=== PATIENT | female | born 1945 | race Caucasian/White ===

== ENCOUNTER 2017-08-10 12:34 | Emergency (ER) | payer MEDICARE, BC ==
[2017-08-10] MEDS ORDERED: 0.9 % SODIUM CHLORIDE 1,000 ML BAG IV ONE ×2 (14:03→15:16)
[2017-08-10] MEDS ORDERED: ONDANSETRON HCL IV 4 MG/2 ML VIAL IV ONE (14:03)
--- NOTE | 2017-08-10 14:04 | Emergency Department Record ---
History of Present Illness - General Chief complaint: Nausea, Vomiting, Diarrhea Stated complaint: NAUSEA Time Seen by Provider: 08/10/17 13:58 Source: Patient Mode of Arrival: Ambulatory Limitations: No limitations - History of Present Illness Initial comments: 71 yo female presents with nausea. She recently had some issues with constipation. She did take some laxative that did help but now she is experiencing nausea. She reports she has a history of IBS. She has a history of alternating constipation and loose stools. No blood in the stools or vomit. She is a diabetic but she never checks her blood sugar at home. No fevers. No chills. No dysuria. MD complaint: Abdominal pain, Diarrhea, Nausea, Vomiting Onset/Timin -: Days(s) Description of Vomiting: Watery Description of Diarrhea: Other Associated Abdominal Pain: Yes Location: Diffuse Radiation: Back Severity: Mild Severity scale (1-10): 5 Quality: Aching Consistency: Constant Improves with: None Worsens with: None Associated Symptoms: Nausea/vomiting - Related Data Home Medications Medication Instructions Recorded Confirmed Last Taken Alprazolam [Alprazolam] 0.25 mg PO DAILY 08/10/17 08/10/17 Unknown Amitriptyline HCl [Elavil] 25 mg PO DAILY 08/10/17 08/10/17 Unknown Levothyroxine Sodium [Synthroid] 25 mcg PO DAILY 08/10/17 08/10/17 Unknown Metformin HCl 500 mg PO BID 08/10/17 08/10/17 Unknown Previous Rx's Medication Instructions Recorded Ondansetron [Zofran Odt] 4 mg PO Q8H #20 tab.rapdis 08/10/17 Allergies Allergy/AdvReac Type Severity Reaction Status Date / Time Penicillins Allergy HIVES Verified 08/10/17 13:54 Travel Screening - Travel/Exposure Within Last 30 Days Have you traveled within the last 30 days?: No Review of Systems Constitutional: Denies: Chills, Fever, Malaise, Weakness Eyes: Denies: Eye discharge, Eye pain, Photophobia ENT: Denies: Congestion, Throat pain Respiratory: Denies: Cough Cardiovascular: Denies: Chest pain, Palpitations, Syncope Endocrine: Denies: Fatigue Gastrointestinal: Reports: Abdominal pain, Diarrhea, Nausea, Vomiting. Denies: Constipation, Hematemesis, Hematochezia, Melena Genitourinary: Denies: Dyspareunia, Dysuria, Urgency Musculoskeletal: Denies: Arthralgia, Back pain, Neck pain Skin: Denies: Bruising, Change in color Neurological: Denies: Headache, Numbness, Vertigo, Weakness Psychiatric: Denies: Anxiety Hematological/Lymphatic: Denies: Blood Clots, Easy bleeding, Easy bruising, Swollen glands Past Medical History - SOCIAL HISTORY Smoking Status: Former smoker Alcohol Use: None Drug Use: None Drug Use Detail:: Marijuana - RESPIRATORY Hx Respiratory Disorders: Yes Hx COPD: Yes - CARDIOVASCULAR Hx Cardio Disorders: No - NEURO Hx Neuro Disorders: No - GI Hx GI Disorders: No - Hx Genitourinary Disorders: Yes Hx Kidney Stones: Yes - ENDOCRINE Hx Endocrine Disorders: Yes Hx Diabetes: Yes (type) Hx Thyroid Disease: Yes (hypo) - MUSCULOSKELETAL Hx Musculoskeletal Disorders: Yes Hx Arthritis: Yes (4) - PSYCH Hx Psych Problems: Yes Hx Anxiety: Yes Hx Depression: Yes - HEMATOLOGY/ONCOLOGY Hx Hematology/Oncology Disorders: No Family Medical History Any Significant Family History?: No Physical Exam - General General Appearance: Alert, Oriented x3, Cooperative, No acute distress Limitations: No limitations - Head Head exam: Atraumatic, Normocephalic, Normal inspection - Eye Eye exam: Normal appearance, Conjunctival injection - ENT ENT exam: Normal exam, Mucous membranes moist Ear exam: Normal external inspection Nasal Exam: Normal inspection Mouth exam: Normal external inspection - Neck Neck exam: Normal inspection - Respiratory Respiratory exam: Normal lung sounds bilaterally. negative: Respiratory distress - Cardiovascular Cardiovascular Exam: Regular rate, Normal rhythm, Normal heart sounds - GI/Abdominal GI/Abdominal exam: Soft, Normal bowel sounds. negative: Distended, Guarding, Rebound, Rigid, Tenderness - Rectal Rectal exam: Deferred - exam: Deferred - Extremities Extremities exam: Normal inspection, Full ROM, Normal capillary refill. negative: Tenderness - Back Back exam: Reports: Normal inspection, Full ROM. Denies: Muscle spasm, Rash noted, Tenderness - Neurological Neurological exam: Alert, Normal gait, Oriented X3 - Psychiatric Psychiatric exam: Normal affect, Normal mood - Skin Skin exam: Dry, Intact, Normal color, Warm. negative: Cyanosis, Diaphoretic Course Vital Signs 08/10/17 13:47 Temperature 98.7 F Pulse Rate 96 H Respiratory 20 Rate Blood Pressure 139/103 Pulse Ox 97 - Reevaluation(s) Reevaluation #1: 08/10/17 15:19 The labs were reviewed CBC is unchanged CMP demonstrates a glucose of 374, HCO3 20, AG 22, K is 3.8 She will be given supplemental K, additional IVF, and recheck labs pH and Ketones added She is actually feeling much better after 1 liter and Zofran. 08/10/17 15:35 The patient states she does not check her blood sugars ever. I discussed with her this will be important going forward. Reevaluation #2: pH and Acetone are negative. 08/10/17 16:42 After the second liter the patient feels greatly improved Will recheck glucose. 08/10/17 17:33 Medical Decision Making - Lab Data Result diagrams: 08/10/17 14:35 08/10/17 14:35 Disposition Disposition: Discharge Clinical Impression: Vomiting and diarrhea Disposition: Home, Self-Care Condition: (1) Good Instructions: Acute Nausea and Vomiting (ED) Additional Instructions: Stay hydrated Return if you have fever, pain, vomiting or any new concerns Zofran as needed for nausea Call your doctor for a new glucometer as soon as possible You will need to check your sugars on a daily basis Prescriptions: Ondansetron [Zofran Odt] 4 mg PO Q8H #20 tab.rapdis Forms: Patient Portal Access Time of Disposition: 18:17 Quality - Quality Measures Quality Measures: N/A - Blood Pressure Screening Does Patient Have Any of the Following: No Blood Pressure Classification: Hypertensive Reading Systolic Measurement: 139 Diastolic Measurement: 103 Screening for High Blood Pressure: < Pre-Hypertensive BP, F/U Documented > [ G8950] Pre-Hypertensive Follow-up Interventions: Referral to alternative/primary care provider.
[2017-08-10 14:49] LABS: BASO % 0.2 % (0-6); EOS % 0.5 % (0-6); GRAN % 71.6 % (47-80); HEMATOCRIT 44.7 % (35.0-47.0); HEMOGLOBIN 15.5 gm/dl (11.6-16.0); MEAN CELL VOLUME 84.2 fl (81-97); MEAN CORPUSCULAR HEMOGLOBIN 29.2 pg (27-33); MEAN CORPUSCULAR HGB CONC 34.7 g/dl (32-36); MEAN PLATELET VOLUME 10.8 fl (7.4-10.4); MONO % 11.7 % (0-9); PLATELET COUNT 267 K/uL (130-400); RED BLOOD COUNT 5.31 M/uL (3.80-5.40); RED CELL DISTRIBUTION WIDTH 13.3 % (11.5-14.5); WHITE BLOOD COUNT W/O DIFF 10.8 K/uL (4.2-12.2)
[2017-08-10 15:10] LABS: ALB/GLOB RATIO 1.4 (1.1-1.8); ALBUMIN 4.2 g/dL (4.0-5.0); ALKALINE PHOSPHATASE 89 U/L (35-104); ALT/SGPT 45 U/L (<33); AST/SGOT 34 U/L (10.0-35.0); BLOOD UREA NITROGEN 36.6 mg/dL (17.4-49.2); CREATININE 0.7 mg/dL (0.5-0.9); EST GLOMERULAR FILTRATION RATE > 60 mL/min; GLUCOSE,RANDOM 374 mg/dL (74-109); LIPASE 19 U/L (13-60); TOTAL PROTEIN 7.3 g/dL (6.6-8.7)
[2017-08-10] MEDS ORDERED: POTASSIUM CHLORIDE 20 MEQ TABLET PO ONE (15:17)
[2017-08-10] MEDS ORDERED: HUMULIN R 100 UNIT/ML VIAL SQ ONE (15:18)
[2017-08-10] MEDS ORDERED: HUMULIN R 100 UNIT/ML VIAL SC ONE (15:36)
[2017-08-10 16:09] LABS: ACETONE,SERUM NEGATIVE (NEGATIVE)
[2017-08-10 18:03] LABS: URINE APPEARANCE CLEAR; URINE BILIRUBIN SMALL (NEGATIVE); URINE BLOOD NEGATIVE (NEGATIVE); URINE COLOR YELLOW; URINE LEUKOCYTE ESTERASE NEGATIVE (NEGATIVE); URINE NITRITE NEGATIVE (NEGATIVE); URINE PROTEIN NEGATIVE (NEGATIVE); URINE UROBILINOGEN 0.2 E.U./dL (0.20 - 1.00)
[2017-08-10 18:04] LABS: URINE GLUCOSE (UA) >=1000 mg/dL (NEGATIVE); URINE KETONE 80 mg/dL (NEGATIVE)
== END 2017-08-10 18:30 | disposition home or self-care (01) ==
LOC: ER 12:34
DX: R11.2 Nausea with vomiting, unspecified (principal); R19.7 Diarrhea, unspecified
CPT/HCPCS: 99284 ×2; 96374; 96372; 96361; 82800; 83690; 85025; 80053; 36416; 82009; 82948; 81003; J2405; J1815; J7030

== ENCOUNTER 2017-08-15 13:56 | Emergency (ER) | payer BC, MEDICARE ==
[2017-08-15] MEDS ORDERED: IBUPROFEN 600 MG TABLET PO ONE (14:14)
--- NOTE | 2017-08-15 14:20 | Emergency Department Record ---
History of Present Illness - General Chief complaint: Extremity Problem Stated complaint: LT HAND/WRIST PAIN/SWELLING Time Seen by Provider: 08/15/17 14:10 Source: Patient Mode of Arrival: Ambulatory Limitations: No limitations - History of Present Illness Initial comments: 71 yo presents with two days of left wrist pain. She does not recall any injury. She woke up with the pain. No fevers. She noted some swelling. No abnormal warmth or redness. She does have a history of arthritis. No weakness , numbness or tingling. No abnormal coolness. PCP Sekoni. HERNANDEZ Complaint: Extremity pain, Joint pain Onset/Timin -: Days(s) Location: Left, Hand History of Same: No Severity scale (1-10): 8 Quality: Aching Consistency: Constant Improves with: Rest Associated Symptoms: Denies other symptoms, Arthralgias - Related Data Previous Rx's Medication Instructions Recorded Ondansetron [Zofran Odt] 4 mg PO Q8H #20 tab.rapdis 08/10/17 Allergies Allergy/AdvReac Type Severity Reaction Status Date / Time Penicillins Allergy HIVES Verified 08/15/17 14:15 Travel Screening - Travel/Exposure Within Last 30 Days Have you traveled within the last 30 days?: No - Travel/Exposure Within Last Year Have you traveled outside the [place] in the last year?: No - Additonal Travel Details Have you been exposed to anyone with a communicable illness?: No - Travel Symptoms Symptom Screening: None Review of Systems Constitutional: Denies: Chills, Fever, Malaise, Weakness Eyes: Denies: Eye discharge ENT: Denies: Congestion, Throat pain Respiratory: Denies: Cough, Dyspnea, Hemoptysis, Stridor, Wheezes Cardiovascular: Denies: Chest pain, Palpitations, Syncope Endocrine: Denies: Fatigue, Polydipsia, Polyuria Gastrointestinal: Reports: As per HPI (Recently resolved. Eating and drinking well now.), Diarrhea, Nausea, Vomiting Genitourinary: Denies: Dysuria, Urgency Musculoskeletal: Reports: As per HPI, Arthralgia. Denies: Back pain, Myalgia, Neck pain Skin: Denies: Bruising, Change in color Neurological: Denies: Headache, Numbness, Weakness Psychiatric: Denies: Anxiety Hematological/Lymphatic: Denies: Blood Clots, Easy bleeding, Easy bruising, Swollen glands Past Medical History - SOCIAL HISTORY Smoking Status: Former smoker Alcohol Use: None Drug Use: None - RESPIRATORY Hx Respiratory Disorders: Yes Hx COPD: Yes - CARDIOVASCULAR Hx Cardio Disorders: No - NEURO Hx Neuro Disorders: No - GI Hx GI Disorders: No - Hx Genitourinary Disorders: Yes Hx Kidney Stones: Yes - ENDOCRINE Hx Endocrine Disorders: Yes Hx Diabetes: Yes (type) Hx Thyroid Disease: Yes (hypo) - MUSCULOSKELETAL Hx Musculoskeletal Disorders: Yes Hx Arthritis: Yes (4) - PSYCH Hx Psych Problems: Yes Hx Anxiety: Yes Hx Depression: Yes - HEMATOLOGY/ONCOLOGY Hx Hematology/Oncology Disorders: No Family Medical History Any Significant Family History?: Yes Hx Cancer: Father, Mother, Grandparents Hx Diabetes: Father, Mother, Grandparents Hx Heart Disease: Father, Mother, Grandparents Hx Stroke: Grandparents Physical Exam - General General Appearance: Alert, Oriented x3, Cooperative, No acute distress Limitations: No limitations - Head Head exam: Atraumatic, Normal inspection - Eye Eye exam: Normal appearance, PERRL. negative: Conjunctival injection, Periorbital swelling - ENT ENT exam: Normal exam, Mucous membranes moist Ear exam: Normal external inspection Nasal Exam: Normal inspection Mouth exam: Normal external inspection - Neck Neck exam: Normal inspection - Respiratory Respiratory exam: Normal lung sounds bilaterally. negative: Respiratory distress - Cardiovascular Cardiovascular Exam: Normal rhythm, Tachycardia Peripheral Pulses: 2+: Radial (L) - Rectal Rectal exam: Deferred - exam: Deferred - Extremities Extremities exam: Normal inspection, Joint swelling (mild), Normal capillary refill, Tenderness. negative: Full ROM Image of Hand: 1 - mild swelling, no abnormal warmth or erythema, tender mid wrist, tender with ROM - Back Back exam: Denies: CVA tenderness (R), CVA tenderness (L) - Neurological Neurological exam: Alert, Normal gait, Oriented X3, Reflexes normal - Psychiatric Psychiatric exam: Normal affect, Normal mood. negative: Agitated, Anxious - Skin Skin exam: Dry, Intact, Normal color, Warm. negative: Cyanosis, Diaphoretic, Erythema, Mottled Course Vital Signs 08/15/17 14:11 Temperature 97.7 F Pulse Rate 119 H Respiratory 20 Rate Blood Pressure 121/96 Pulse Ox 97 - Reevaluation(s) Reevaluation #1: XR read as severe degenerative changes of the wrist and can not rule out distal radius avulsion fx She will be splinted and follow up with PCP 08/15/17 14:53 Disposition Disposition: Discharge Clinical Impression: Arthritis of wrist, left Disposition: Home, Self-Care Condition: (1) Good Instructions: Osteoarthritis (ED) Additional Instructions: Use the splint for support and comfort Ice the wrist 3-4 times daily to minimize swelling Follow up with your family doctor You are being referred to the orthopedic specialty clinic as well Referrals: ALIDA SUAREZ [DOCTOR OF OSTEOPATH] - [facility] Special[facility] [Provider Group] Forms: Patient Portal Access Time of Disposition: 15:02 Quality - Quality Measures Quality Measures: N/A - Blood Pressure Screening Does Patient Have Any of the Following: No Blood Pressure Classification: Hypertensive Reading Systolic Measurement: 121 Diastolic Measurement: 96 Screening for High Blood Pressure: < Pre-Hypertensive BP, F/U Documented > [ G8950] Pre-Hypertensive Follow-up Interventions: Referral to alternative/primary care provider.
--- NOTE | 2017-08-16 09:12 | RADIOLOGY REPORT ---
EXAM: LEFT WRIST HISTORY: INJURY. TECHNIQUE: Four views of the left wrist were performed. FINDINGS: There is severe degenerative change of the first carpal metacarpal joint space. There is calcification of the TFCC. There is an equivocal avulsion fracture deformity of the lateral aspect of the distal radius. IMPRESSION: 1. EQUIVOCAL FRACTURE DEFORMITY OF THE DISTAL LEFT RADIUS ALONG ITS LATERAL ASPECT. 2. SEVERE DEGENERATIVE CHANGE OF THE FIRST CARPAL METACARPAL JOINT SPACE. 3. CALCIFICATION OF THE TFCC. JOB NUMBER: [id number] [facility]
== END 2017-08-15 15:24 | disposition home or self-care (01) ==
LOC: ER 13:56
DX: M19.032 Primary osteoarthritis, left wrist (principal)
CPT/HCPCS: 99283

== ENCOUNTER 2017-12-04 09:37 | Day surgery (SDC) | payer BC ==
[2017-12-04] MEDS ORDERED: MIDAZOLAM HCL 2MG/2ML VIAL IV ONE (09:38)
[2017-12-04] MEDS ORDERED: PROPOFOL 10 MG/ML VIAL IV ONE (09:38)
[2017-12-04] MEDS ORDERED: LIDOCAINE 2% MDV (20MG/ML) 20ML VIAL IV ONE (09:38)
--- NOTE | 2017-12-05 12:40 | Operative Note ---
Dictated by Dr. Garfield Oneill for Dr. Corrigan DATE OF SURGERY: 12/04/2017 PREOPERATIVE DIAGNOSIS: History of colon polyps. POSTOPERATIVE DIAGNOSES: 1. One ascending colon polyp, status post cold snare polypectomy. 2. Three transverse colon polyps, cold snare polypectomy. 3. Two descending colon polyps with snare and forceps polypectomy. 4. One sigmoid colon polyp status post hot snare polypectomy. 5. One rectal polyp, status post hot snare polypectomy. 6. Left-sided diverticulosis. OPERATION: COLONOSCOPY with polypectomy. ENDOSCOPIST: Mani Corrigan DO SHUTTLE FINAL INSPECTOR: Dr. Garfield Oneill ANESTHESIA: Anesthesia was performed by the anesthesia department. COMPLICATIONS: None. INDICATIONS FOR PROCEDURE: A 72-year-old female presents for colon polyp surveillance. The patient's last colonoscopy was 2002 in which patient had one colon polyp that was removed at that time. The patient denies any GI bleeding, weight loss, changes in bowel habits. The patient does have family history of colon cancer in her brother. PROCEDURE: Procedure was thoroughly explained to the patient including risks, benefits, and alternatives. The patient had opportunity to have questions answered. Patient agreed to procedure and signed written informed consent. The patient was brought to the endoscopy suite and was placed on the left lateral decubitus position. Anesthesia was begun and procedure begun with introduction of a well-lubricated Olympus [id number] colonoscope to rectum and was advanced all the way to cecum where appendiceal orifice and ileocecal valve were identified. Scope was withdrawn slowly from cecum to ascending colon, transverse colon, descending colon, sigmoid colon to rectum. There was one 6 mm ascending colon polyp which was removed with cold snare polypectomy and was retrieved completely, 3 transverse colon polyps measuring 5-7 mm that were removed with cold snare polypectomy and retrieved, 2 descending colon polyps measuring from 2-4 mm and removed with cold forceps and cold snare polypectomy and retrieved, one sigmoid polyp of 8 mm was removed with hot snare polypectomy and was retrieved, and one rectal polyp measuring 7 mm was removed using hot snare polypectomy and was retrieved. There appeared to be a mild sigmoid colon diverticulosis as well. Rectum was retroflexed which appeared normal and scope was straightened back and was removed completely. The patient tolerated the procedure well without any immediate complications. RECOMMENDATION: 1. Await pathology. 2. Low-residue diet for 14 days as well as avoidance of NSAIDs or aspirin product for 2 weeks. 3. Repeat colonoscopy in 3 years given history of polyps. As always, thank you for allowing me to participate in the care of your patient. CC: MD JOSE Marie
== END 2017-12-04 11:40 | disposition home or self-care (01) ==
LOC: HOP 09:37
PROVIDERS: ATTEND Internal Medicine Gastroenterology
DX: Z12.11 Encounter for screening for malignant neoplasm of colon (principal); D12.7 Benign neoplasm of rectosigmoid junction; D12.2 Benign neoplasm of ascending colon; D12.3 Benign neoplasm of transverse colon; K63.5 Polyp of colon; J44.9 Chronic obstructive pulmonary disease, unspecified; E03.9 Hypothyroidism, unspecified; E11.9 Type 2 diabetes mellitus without complications; Z79.84 Long term (current) use of oral hypoglycemic drugs; E78.00 Pure hypercholesterolemia, unspecified

== ENCOUNTER 2018-06-20 21:31 | Emergency (ER) | payer BC ==
[2018-06-20] MEDS ORDERED: ONDANSETRON HCL IV 4 MG/2 ML VIAL IVP ONE (22:01)
--- NOTE | 2018-06-20 22:01 | Emergency Department Record ---
History of Present Illness - General Chief complaint: Hypergylcemia Stated complaint: HIGH SUGAR/DIABETIC Time Seen by Provider: 06/20/18 21:39 Source: Patient Mode of Arrival: Wheelchair Limitations: No limitations - History of Present Illness Initial comments: 72 yo female presents to ED for evaluation of elevated blood sugar, nausea, and vomiting symptoms today. Patient reports that her blood sugar has been running higher since receiving a steroid injection in her back 5 days ago. Patient was told by her PCP to take an extra Metformin for her elevated blood sugars symptoms, however her BS increased. Patient denies fevers, chills, cough, or urinary symptoms. Patient denies abdominal pain symptoms. Onset/Timin -: Days(s) Location: Generalized Severity: Moderate Consistency: Intermittent Improves with: None Worsens with: None Context: Other Associated Symptoms: Nausea/vomiting - Sana Coma Scale Eye Response: (4) Open spontaneously Motor Response: (6) Obeys commands Verbal Response: (5) Oriented [place] Total: 15 - Related Data Home Medications Medication Instructions Recorded Confirmed Last Taken Tizanidine HCl [Zanaflex] 6 mg PO ASDIR 06/20/18 06/20/18 Unknown Allergies Allergy/AdvReac Type Severity Reaction Status Date / Time Penicillins Allergy HIVES Verified 08/15/17 14:15 Travel Screening - Travel/Exposure Within Last 30 Days Have you traveled within the last 30 days?: No - Travel/Exposure Within Last Year Have you traveled outside the [place] in the last year?: No - Additonal Travel Details Have you been exposed to anyone with a communicable illness?: No - Travel Symptoms Symptom Screening: None Review of Systems Constitutional: Denies: Chills, Fever, Malaise, Night sweats Eyes: Denies: Eye discharge, Eye pain ENT: Denies: Congestion, Ear pain, Epistaxis Respiratory: Denies: Cough, Dyspnea Cardiovascular: Denies: Chest pain, Dyspnea on exertion Endocrine: Reports: Fatigue. Denies: Heat or cold intolerance Gastrointestinal: Reports: Nausea, Vomiting. Denies: Abdominal pain Genitourinary: Denies: Incontinence, Retention Musculoskeletal: Denies: Arthralgia, Back pain Skin: Denies: Bruising, Change in color Neurological: Denies: Abnormal gait, Confusion, Headache, Seizure Psychiatric: Denies: Anxiety Hematological/Lymphatic: Denies: Anemia, Blood Clots Past Medical History - SOCIAL HISTORY Smoking Status: Former smoker Alcohol Use: None Drug Use Detail:: Marijuana - RESPIRATORY Hx Respiratory Disorders: Yes Hx COPD: Yes Hx Dyspnea: Yes (getting better after quitting smoking) - CARDIOVASCULAR Hx Cardio Disorders: No Comment:: high cholesterol - NEURO Hx Neuro Disorders: No - GI Hx GI Disorders: No Hx Diverticulitis: Yes Hx of Polyps: Yes - Hx Genitourinary Disorders: Yes Hx Kidney Stones: Yes - ENDOCRINE Hx Endocrine Disorders: Yes Hx Diabetes: Yes (type) Hx Thyroid Disease: Yes (hypo) - MUSCULOSKELETAL Hx Musculoskeletal Disorders: Yes Hx Arthritis: Yes (4) - PSYCH Hx Psych Problems: Yes Hx Anxiety: Yes Hx Depression: Yes - HEMATOLOGY/ONCOLOGY Hx Hematology/Oncology Disorders: No Family Medical History Any Significant Family History?: Yes Hx Cancer: Father, Mother, Grandparents Hx Diabetes: Father, Mother, Grandparents Hx Heart Disease: Father, Mother, Grandparents Hx Stroke: Grandparents Physical Exam - General General Appearance: Alert, Oriented x3, Cooperative, Mild distress Limitations: No limitations - Head Head exam: Atraumatic, Normocephalic, Normal inspection Head exam detail: negative: Abrasion, Contusion, Colunga's sign, General tenderness, Hematoma, Laceration - Eye Eye exam: Normal appearance. negative: Conjunctival injection, Periorbital swelling, Periorbital tenderness, Scleral icterus - ENT Ear exam: negative: Auricular hematoma, Auricular trauma Nasal Exam: negative: Active bleeding, Discharge, Dried blood, Foreign body Mouth exam: negative: Drooling, Laceration, Tongue elevation - Neck Neck exam: Normal inspection. negative: Meningismus, Tenderness - Respiratory Respiratory exam: Normal lung sounds bilaterally. negative: Rales, Respiratory distress, Rhonchi, Stridor - Cardiovascular Cardiovascular Exam: Regular rate, Normal rhythm, Normal heart sounds - GI/Abdominal GI/Abdominal exam: Soft. negative: Rebound, Rigid, Tenderness - Rectal Rectal exam: Deferred - exam: Deferred - Extremities Extremities exam: Normal inspection. negative: Calf tenderness, Pedal edema, Tenderness - Back Back exam: Denies: CVA tenderness (R), CVA tenderness (L) - Neurological Neurological exam: Alert, Normal gait, Oriented X3 - Psychiatric Psychiatric exam: Normal affect, Normal mood - Skin Skin exam: Normal color. negative: Abrasion Type of lesion: negative: abrasion Course Vital Signs 06/20/18 21:40 Temperature 97.6 F Pulse Rate 100 H Respiratory 20 Rate Blood Pressure 137/101 Pulse Ox 95 - Reevaluation(s) Reevaluation #1: 06/20/18 22:30 Laboratory studies were reviewed: Venous pH 7.36 AG 19 Glucose 371 Ketones negative. Patient receiving IVF bolus, Insulin 8 units IV ordered as well for hyperglycemia symptoms. Will reassess glucose in 45-60 minutes. Reevaluation #2: 06/20/18 23:15 Repeat accu check 200. Patient reports that she is feeling significantly improved, and appears stable for discharge at this time. Medical Decision Making - Lab Data Result diagrams: 06/20/18 21:55 06/20/18 21:55 Disposition Disposition: Discharge Clinical Impression: Hyperglycemia due to type 2 diabetes mellitus Qualifiers: Diabetes mellitus lobsterman insulin use: without lobsterman use Qualified Code(s ): E11.65 - Type 2 diabetes mellitus with hyperglycemia Disposition: Home, Self-Care Condition: (2) Stable Instructions: Diabetic Hyperglycemia (ED) Additional Instructions: Return to ED if your symptoms worsen or if you have any concerns. Follow-up with your family doctor in 3-5 days as directed. Forms: Patient Portal Access Time of Disposition: 22:50 Quality - Quality Measures Quality Measures: N/A - Blood Pressure Screening Does Patient Have Any of the Following: No Blood Pressure Classification: Hypertensive Reading Systolic Measurement: 137 Diastolic Measurement: 101 Screening for High Blood Pressure: < First Hypertensive BP, F/U Documented > [ G8950] First Hypertensive Follow-up Interventions: Referral to alternative/primary care provider.
[2018-06-20 22:07] LABS: BASO % 0.5 % (0-6); EOS % 1.2 % (0-6); HEMATOCRIT 45.2 % (35.0-47.0); HEMOGLOBIN 15.5 gm/dl (11.6-16.0); LYMPH % 17.6 % (16-45); MEAN CELL VOLUME 86.1 fl (81-97); MEAN CORPUSCULAR HEMOGLOBIN 29.5 pg (27-33); MEAN CORPUSCULAR HGB CONC 34.3 g/dl (32-36); MEAN PLATELET VOLUME 10.5 fl (7.4-10.4); MONO % 8.7 % (0-9); PLATELET COUNT 261 K/uL (130-400); RED BLOOD COUNT 5.25 M/uL (3.80-5.40); RED CELL DISTRIBUTION WIDTH 13.5 % (11.5-14.5); WHITE BLOOD COUNT W/O DIFF 10.4 K/uL (4.2-12.2)
[2018-06-20] MEDS ORDERED: 0.9 % SODIUM CHLORIDE 1000ML 1,000 ML IV SCH (22:15)
[2018-06-20 22:16] LABS: ACETONE,SERUM NEGATIVE (NEGATIVE); BLOOD UREA NITROGEN 13 mg/dL (8-23); CREATININE 0.9 mg/dL (0.5-0.9); EST GLOMERULAR FILTRATION RATE > 60 mL/min
[2018-06-20] MEDS ORDERED: HUMULIN R 100 UNIT/ML VIAL IV ONE (22:16)
[2018-06-20 22:17] LABS: TOTAL PROTEIN 7.7 g/dL (6.6-8.7)
[2018-06-20 22:19] LABS: GLUCOSE,RANDOM 371 mg/dL (74-109)
[2018-06-20 22:22] LABS: ALB/GLOB RATIO 1.3 (1.1-1.8); ALBUMIN 4.4 g/dL (4.0-5.0); ALKALINE PHOSPHATASE 93 U/L (35-104); ALT/SGPT 35 U/L (<33); AST/SGOT 22 U/L (10.0-35.0)
== END 2018-06-20 23:22 | disposition home or self-care (01) ==
LOC: ER 21:31
DX: E09.65 Drug or chemical induced diabetes mellitus with hyperglycemia (principal); T38.0X5A Adverse effect of glucocorticoids and synthetic analogues, initial encounter; R11.2 Nausea with vomiting, unspecified; Z87.891 Personal history of nicotine dependence; Z79.84 Long term (current) use of oral hypoglycemic drugs
CPT/HCPCS: 99284 ×2; 96374; 96375; 96361; 82800; 85025; 80053; 36416; 82009; 82948; J2405; J7030

== ENCOUNTER 2018-07-26 07:57 | Day surgery (SDC) | payer BC ==
[2018-07-26] MEDS ORDERED: PROPOFOL 10 MG/ML VIAL IV ONE (07:58)
[2018-07-26] MEDS ORDERED: TETRACAINE HCL 0.5% 15 ML OPTH BTL OPTH ONE (07:58)
[2018-07-26] MEDS ORDERED: EPINEPHRINE 1 MG/ML AMPUL SQ ONE (07:58)
[2018-07-26] MEDS ORDERED: NEOMYCIN/POLY./DEXAM OPTH OINT OPTH ONE (07:58)
[2018-07-26] MEDS ORDERED: LIDOCAINE 2% MDV (20MG/ML) 20ML VIAL IV ONE (07:58)
[2018-07-26] MEDS ORDERED: CIPROFLOXACIN HCL 0.0015 GM, PHENYLEPHRINE HCL 0.05 GM, KETOROLAC TROMETHAMINE 0.000625 GM MC ONE ×5 (12:45)
--- NOTE | 2018-07-28 13:43 | Operative Note ---
DATE OF PROCEDURE: 07/26/18. PREOPERATIVE DIAGNOSIS: Nuclear sclerotic and cortical cataract, right eye. POSTOPERATIVE DIAGNOSIS: Nuclear sclerotic and cortical cataract, right eye. OPERATION: Phacoemulsification of cataractous lens with implantation of intraocular lens. LENS IMPLANT USED: Murray Model PCB00 + 22.0 diopters. COMPLICATIONS: None. PROCEDURE IN DETAIL: Following a retrobulbar and facial block, the patient was prepped and draped in the usual fashion for eye surgery. A lid speculum was placed in the right eye after which a 2.4 mm tunnel wound was placed at the temporal limbus and dissected into clear cornea. A paracentesis was placed at 2 o'clock hours to the left and right of the initial incision and the chamber deepened with Viscoelastic. The keratome was then used to enter the anterior chamber after which the continuous circular capsulorrhexis was accomplished without difficulty using a bent needle and a Utrata forceps. Hydrodissection and hydrodelineation of the lens was performed after which the nucleus of the lens was removed using the Phaco handpiece in the [id number] technique. The residual cortical material was irrigated and aspirated from the eye after which the bag and chamber were re-examined. The bag was re-inflated with Viscoelastic and the intraocular lens injected into the capsular bag where it centered well. The Viscoelastic was then copiously irrigated and aspirated from the eye after which the temporal tunnel wound and paracentesis were hydrated and the wounds were examined. They were noted to be watertight. The lid speculum was removed from the eye and the eye patched and shielded. The patient was transferred to the recovery room in satisfactory condition and given an appointment to be reexamined in the clinic later today or as directed by Dr. Jose. JOB NUMBER: [id number] [facility]
== END 2018-07-26 11:02 | disposition home or self-care (01) ==
LOC: SUR 07:57
PROVIDERS: ATTEND Ophthalmology
DX: H25.11 Age-related nuclear cataract, right eye (principal); E11.9 Type 2 diabetes mellitus without complications; J44.9 Chronic obstructive pulmonary disease, unspecified; M19.90 Unspecified osteoarthritis, unspecified site
CPT/HCPCS: J0171

== ENCOUNTER 2018-08-09 09:01 | Day surgery (SDC) | payer BC ==
[2018-08-09] MEDS ORDERED: LIDOCAINE 2% MDV (20MG/ML) 20ML VIAL IV ONE ×2 (09:02)
[2018-08-09] MEDS ORDERED: TETRACAINE HCL 0.5% 15 ML OPTH BTL OPTH ONE (09:02)
[2018-08-09] MEDS ORDERED: PROPOFOL 10 MG/ML VIAL IV ONE (09:02)
[2018-08-09] MEDS ORDERED: NEOMYCIN/POLY./DEXAM OPTH OINT OPTH ONE (09:02)
[2018-08-09] MEDS ORDERED: CIPROFLOXACIN HCL 0.0015 GM, PHENYLEPHRINE HCL 0.05 GM, KETOROLAC TROMETHAMINE 0.000625 GM MC ONE ×5 (16:30)
--- NOTE | 2018-08-11 14:09 | Operative Note ---
DATE OF PROCEDURE: 08/09/18. PREOPERATIVE DIAGNOSIS: Nuclear sclerotic cataract, left eye. POSTOPERATIVE DIAGNOSIS: Nuclear sclerotic cataract, left eye. OPERATION: Phacoemulsification of cataractous lens with implantation of intraocular lens. LENS IMPLANT USED: Murray Model PCB00 + 23.0 diopters. COMPLICATIONS: None. PROCEDURE IN DETAIL: Following a retrobulbar and facial block, the patient was prepped and draped in the usual fashion for eye surgery. A lid speculum was placed in the left eye after which a 2.4 mm tunnel wound was placed at the temporal limbus and dissected into clear cornea. A paracentesis was placed at 2 o'clock hours to the left and right of the initial incision and the chamber deepened with Viscoelastic. The keratome was then used to enter the anterior chamber after which the continuous circular capsulorrhexis was accomplished without difficulty using a bent needle and a Utrata forceps. Hydrodissection and hydrodelineation of the lens was performed after which the nucleus of the lens was removed using the Phaco handpiece in the [id number] technique. The residual cortical material was irrigated and aspirated from the eye after which the bag and chamber were re-examined. The bag was re-inflated with Viscoelastic and the intraocular lens injected into the capsular bag where it centered well. The Viscoelastic was then copiously irrigated and aspirated from the eye after which the temporal tunnel wound and paracentesis were hydrated and the wounds were examined. They were noted to be watertight. The lid speculum was removed from the eye and the eye patched and shielded. The patient was transferred to the recovery room in satisfactory condition and given an appointment to be reexamined in the clinic later today or as directed by Dr. Jose. JOB NUMBER: [id number] [facility]
== END 2018-08-09 11:18 | disposition home or self-care (01) ==
LOC: SUR 09:01
PROVIDERS: ATTEND Ophthalmology
DX: H25.12 Age-related nuclear cataract, left eye (principal); E11.9 Type 2 diabetes mellitus without complications